=== PATIENT | male | born 1985 | race Caucasian/White ===

== ENCOUNTER 2016-05-06 21:22 | Emergency (ER) | payer OTHER, MEDICAID ==
[~2016-05-06] VITALS: Ht 172.7 cm; Wt 95.0 kg
[2016-05-06 22:17] VITALS: Ht 172.7 cm; Wt 95.0 kg
[2016-05-07] MEDS ORDERED: LEVETIRACETAM IV 1,000 MG in SOD CHLORIDE 0.9% 100 ML IVPB STA (00:03)
--- NOTE | 2016-05-07 00:16 | RADRPT ---
PROCEDURE: XR Chest. CLINICAL INDICATION: Seizure. TECHNIQUE: Portable AP upright view of the chest was obtained. COMPARISON: None available. FINDINGS: The cardiomediastinal silhouette is within normal limits. The lungs are clear. There is no evidenc e for pleural effusion, pneumothorax or pulmonary vascular congestion. The osseous structures are i ntact with no evidence for acute abnormality. RPTAT:HJJR IMPRESSION: No evidence for acute intrathoracic pathology. Physician Yumiko Date Time Electronically viewed and signed by Physician Yumiko on 05/07/2016 00:16 JR/
[2016-05-07 00:33] LABS: BASOPHILS % 0.5 % (0.0-2.0); EOSINOPHILS # 0.2 10^3/ul (0.0-0.5); EOSINOPHILS % 2.5 % (0.0-7.0); HEMATOCRIT 35.8 % (42.0-52.0); HEMOGLOBIN 12.2 g/dl (14.0-18.0); LYMPHOCYTES # 2.3 10^3/ul (0.8-2.9); LYMPHOCYTES % 34.5 % (15.0-51.0); MEAN CORPUSCULAR HEMOGLOBIN 30.7 pg (29.0-33.0); MEAN CORPUSCULAR HGB CONC 34.1 g/dl (32.0-37.0); MEAN PLATELET VOLUME 8.4 fl (7.4-10.4); MONOCYTE # 0.7 10^3/ul (0.3-0.9); MONOCYTES % 10.5 % (0.0-11.0); NEUTROPHIL # 3.5 10^3/ul (1.6-7.5); PLATELET COUNT 303 10^3/UL (140-440); RED BLOOD COUNT 3.98 10^6/ul (4.70-6.10); RED CELL DISTRIBUTION WIDTH 14.6 % (11.5-14.5); UNCORRECTED WBC 6.8 10^3/ul (4.8-10.8); WHITE BLOOD COUNT 6.8 10^3/ul (4.8-10.8)
[2016-05-07 00:35] LABS: CONDITION 1; LH ANALYZER COMMENTS 1
--- NOTE | 2016-05-07 00:58 | RADRPT ---
PROCEDURE: CT brain without contrast CLINICAL INDICATION: Seizure TECHNIQUE: A CT of the brain was performed utilizing axial sections from the skull base through th e vertex without contrast. Sagittal and coronal images were also reformatted. The exam CTDIvol = 45. 01 mGy and DLP = 810.25 mGy-cm. COMPARISON: None available FINDINGS: Right temporal craniotomy changes are demonstrated and there is encephalomalacia of the underlying r ight posterior temporal lobe with associated mild ex vacuo of the posterior temporal horn right late ral ventricle. There is no evidence of intracranial hemorrhage. No mass lesion, mass effect or ext ra-axial collections are present. The ventricular system is within normal limits without hydrocepha lous. The fourth ventricle is midline there is no density alteration within the marisela or cerebellum. No findings of acute ischemic infarct are demonstrated. Incidental chronic-appearing bilateral maxillary sinus disease is present. The remaining paranasal sinuses and mastoid air cells are grossly clear RPTAT:HJJR IMPRESSION: 1. Changes of prior right temporal craniotomy with associated encephalomalacia of the adjacent unde rlying right posterior temporal lobe. 2. No evidence of acute intracranial abnormality or mass effect. Physician Yumiko Date Time Electronically viewed and signed by Physician Yumiko on 05/07/2016 00:58 /
[2016-05-07 00:59] LABS: POTASSIUM 4.1 mmol/L (3.5-5.1)
[2016-05-07 01:01] LABS: CREATININE 0.86 mg/dl (0.61-1.24)
[2016-05-07 01:02] LABS: CALCIUM 8.6 mg/dl (8.4-10.2)
[2016-05-07] MEDS ORDERED: LEVE750T70 PO (03:04)
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
[2016-05-07 03:37] VITALS: BP 134/92; PULSE 62; RESP 16; TEMP 97.9
== END 2016-05-07 03:52 | disposition home or self-care (01) ==
LOC: E/R 21:22
DX: R56.9 Unspecified convulsions (principal); J06.9 Acute upper respiratory infection, unspecified; F17.210 Nicotine dependence, cigarettes, uncomplicated; R40.2142 Coma scale, eyes open, spontaneous, at arrival to emergency department; R40.2252 Coma scale, best verbal response, oriented, at arrival to emergency department; R40.2362 Coma scale, best motor response, obeys commands, at arrival to emergency department
CPT/HCPCS: 36415; 70450; 71010; 80048; 84484; 85025; 96374; 99285; J1953

== ENCOUNTER 2016-06-04 02:04 | Emergency (ER) | payer SELFPAY ==
[~2016-06-04] VITALS: Ht 172.7 cm; Wt 96.5 kg
[~2016-06-04 02:04] MED LIST: LEVE750T70 PO
[2016-06-04 02:58] VITALS: Ht 172.7 cm; Wt 96.5 kg
== END 2016-06-04 05:09 | disposition left against medical advice (07) ==
LOC: E/R 02:04
DX: Z53.21 Procedure and treatment not carried out due to patient leaving prior to being seen by health care provider (principal)

== ENCOUNTER 2016-09-27 20:41 | Emergency (ER) | payer SELFPAY ==
[~2016-09-27] VITALS: Ht 175.3 cm; Wt 101.0 kg
[2016-09-27 21:23] VITALS: Ht 175.3 cm; Wt 101.0 kg
[2016-09-27] MEDS ORDERED: DIPHTH/TET/ACEL PERTUSS (ADULT) 0.5 ML VIAL IM* ONE (22:30)
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
[2016-09-27] MEDS ORDERED: DIPHENHYDRAMINE 50 MG INJ IM ONE (23:30)
--- NOTE | 2016-09-27 23:41 | RADRPT ---
PROCEDURE: X-ray right hand. CLINICAL INDICATION: Right hand injury. TECHNIQUE: 3 views right hand COMPARISON: None FINDINGS: No acute fracture or dislocation. Soft tissues unremarkable. IMPRESSION: No acute fracture. RPTAT: [facility] Physician Chucky Date Time Electronically viewed and signed by Marihcuy Roman Physician on 09/27/2016 23:41 RS/
--- NOTE | 2016-09-27 23:41 | RADRPT ---
PROCEDURE: X-ray left foot CLINICAL INDICATION: Left foot pain TECHNIQUE: 3 views left foot COMPARISON: None FINDINGS: No acute fracture or dislocation. Soft tissues unremarkable. IMPRESSION: No acute fracture. RPTAT: [facility] Physician Chucky Date Time Electronically viewed and signed by Marichuy Roman Physician on 09/27/2016 23:41 RS/
[2016-09-28] MEDS ORDERED: IBUP-1542 PO (00:06)
[2016-09-28] MEDS ORDERED: CEPH-443 PO (00:06)
[2016-09-28] MEDS ORDERED: HYDR-906 PO (00:06)
[2016-09-28 00:26] VITALS: BP 128/77; PULSE 71; RESP 20; TEMP 98.2
== END 2016-09-28 00:27 | disposition home or self-care (01) ==
LOC: FTE 20:41
DX: S90.32XA Contusion of left foot, initial encounter (principal); S60.221A Contusion of right hand, initial encounter; S91.202A Unspecified open wound of left great toe with damage to nail, initial encounter; F17.210 Nicotine dependence, cigarettes, uncomplicated; W19.XXXA Unspecified fall, initial encounter; Y92.9 Unspecified place or not applicable; Z23 Encounter for immunization
CPT/HCPCS: 73130; 73630; 90715; J1200; 90471; 96372

== ENCOUNTER 2016-10-02 01:43 | Emergency (ER) | payer SELFPAY ==
[~2016-10-02] VITALS: Ht 172.7 cm; Wt 104.5 kg
[~2016-10-02 01:43] MED LIST changes: +CEPH-443 PO; +HYDR-906 PO; +IBUP-1542 PO
[2016-10-02 01:50] VITALS: Ht 172.7 cm; Wt 104.5 kg
[2016-10-02] MEDS ORDERED: LORAZEPAM 2 MG INJ ONE (02:02)
[2016-10-02] MEDS ORDERED: LEVETIRACETAM IV 750 MG in SOD CHLORIDE 0.9% 100 ML IVPB STA (02:06)
[2016-10-02] MEDS ORDERED: LORAZEPAM 2 MG INJ IV STA (02:06)
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
--- NOTE | 2016-10-02 03:00 | RADRPT ---
PROCEDURE: CT abdomen and pelvis without intravenous contrast. CLINICAL INDICATION: Pain. TECHNIQUE: CT of the abdomen/pelvis was performed utilizing axial images with reconstructions in s agittal and coronal planes. The administered radiation dose is CTDI 22 mGy, DLP 1437 mGy-cm. COMPARISON: No pertinent prior examinations were submitted for comparison. FINDINGS: Visualized Chest: There is a calcified granuloma the left lower lobe. Abdomen: The spleen, pancreas, gallbladder,and adrenal glands are unremarkable. The liver is diffusely dec reased in attenuation, compatible with hepatic steatosis. The kidneys are without hydronephrosis. There is a punctate nonobstructive calculus within the inte rpolar left kidney. There is no evidence of bowel obstruction. The appendix is normal. No intra-abdominal free air is seen. There is no evidence of intra-abdominal adenopathy or free fluid. Pelvis: There is no evidence of pelvic adenopathy or free fluid. The prostate and bladder are unremarkable. Osseous structures: Unremarkable. IMPRESSION: No acute findings. Punctate nonobstructive left intrarenal calculus. Hepatic steatosis. RPTAT: HIKT .Praful Galan MD, MD Date Time Electronically viewed and signed by .Praful Galan MD, on 10/02/2016 02:59 .T/
[2016-10-02 03:27] LABS: ADD SCAN DIFF NO
[2016-10-02 03:42] LABS: BASOPHILS % 0.5 % (0.0-2.0); EOSINOPHILS # 0.3 10^3/ul (0.0-0.5); EOSINOPHILS % 3.7 % (0.0-7.0); HEMATOCRIT 35.8 % (42.0-52.0); HEMOGLOBIN 12.1 g/dl (14.0-18.0); LYMPHOCYTES # 3.3 10^3/ul (0.8-2.9); LYMPHOCYTES % 41.4 % (15.0-51.0); MEAN CORPUSCULAR HEMOGLOBIN 30.6 pg (29.0-33.0); MEAN CORPUSCULAR HGB CONC 33.8 g/dl (32.0-37.0); MEAN CORPUSCULAR VOLUME 90.4 fl (82.0-101.0); MEAN PLATELET VOLUME 9.9 fl (7.4-10.4); MONOCYTES % 12.8 % (0.0-11.0); NEUTROPHIL # 3.2 10^3/ul (1.6-7.5); PLATELET COUNT 377 10^3/UL (140-415); RED BLOOD COUNT 3.96 10^6/ul (4.70-6.10); RED CELL DISTRIBUTION WIDTH 14.5 % (11.5-14.5); WHITE BLOOD COUNT 7.9 10^3/ul (4.8-10.8)
[2016-10-02] MEDS ORDERED: MULT-861 PO (03:43)
[2016-10-02 03:57] LABS: ALBUMIN 4.6 g/dl (3.3-4.9); ALBUMIN/GLOBULIN RATIO 1.53; BILIRUBIN,INDIRECT 0.1 mg/dl (0-1.1); BILIRUBIN,TOTAL 0.1 mg/dl (0.2-1.3); CALCIUM 8.8 mg/dl (8.4-10.2); CREATININE 0.75 mg/dl (0.61-1.24); POTASSIUM 4.1 mmol/L (3.5-5.1); TOTAL PROTEIN 7.6 g/dl (6.1-8.1)
[2016-10-02 04:03] LABS: ADD UMIC NO; UR BILIRUBIN (Dip) NEGATIVE (NEGATIVE); UR BLOOD (Dip) NEGATIVE (NEGATIVE); UR CLARITY CLEAR (CLEAR); UR COLOR LT. YELLOW (YELLOW); UR GLUCOSE (Dip) NEGATIVE (NEGATIVE); UR KETONES (Dip) NEGATIVE (NEGATIVE); UR LEUKOCYTE ESTERASE (Dip) NEGATIVE (NEGATIVE); UR NITRITE (Dip) NEGATIVE (NEGATIVE); UR TOTAL PROTEIN (Dip) NEGATIVE (NEGATIVE); UR UROBILINOGEN (Dip) 0.2 E.U./dL (0.1-1.0)
[2016-10-02 04:27] LABS: BARBITURATES Negative (NEGATIVE); BENZODIAZEPINES Negative (NEGATIVE); CANNABINOIDS Negative (NEGATIVE); COCAINE Negative (NEGATIVE); OPIATES Negative (NEGATIVE)
[2016-10-02 06:06] VITALS: BP 116/65; PULSE 78; RESP 14
== END 2016-10-02 06:07 | disposition home or self-care (01) ==
LOC: E/R 01:43
DX: R10.84 Generalized abdominal pain (principal); R40.2252 Coma scale, best verbal response, oriented, at arrival to emergency department; G40.909 Epilepsy, unspecified, not intractable, without status epilepticus; F10.10 Alcohol abuse, uncomplicated; D64.9 Anemia, unspecified; F17.210 Nicotine dependence, cigarettes, uncomplicated; R40.2142 Coma scale, eyes open, spontaneous, at arrival to emergency department; R40.2362 Coma scale, best motor response, obeys commands, at arrival to emergency department
CPT/HCPCS: 74176; 80053; 80306; 80307; 81003; 82962; 83690; 85025; J1953; J2060; 36415; 96374; 96375

== ENCOUNTER 2016-10-21 20:03 | Emergency (ER) | payer MEDICAID ==
[~2016-10-21] VITALS: Ht 177.8 cm; Wt 100.5 kg
[~2016-10-21 20:03] MED LIST changes: -HYDR-906 PO; +MULT-861 PO
[2016-10-21 20:08] VITALS: Ht 177.8 cm; Wt 100.5 kg
[2016-10-21] MEDS ORDERED: ACETAMINOPHEN 325 MG TAB PO ONE (21:00)
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
[2016-10-21] MEDS ORDERED: ACET325T33 PO (21:59)
[2016-10-21 22:20] VITALS: BP 135/79; PULSE 60; RESP 16; TEMP 98.9
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
== END 2016-10-21 22:21 | disposition home or self-care (01) ==
LOC: FTE 20:03
DX: S09.90XA Unspecified injury of head, initial encounter (principal); F17.210 Nicotine dependence, cigarettes, uncomplicated; R51 Headache; Y08.89XA Assault by other specified means, initial encounter
CPT/HCPCS: 70450; Z7502; Z7610

== ENCOUNTER 2017-05-12 21:55 | Emergency (ER) | END 2017-05-13 | disposition left against medical advice (07) ==

== ENCOUNTER 2017-10-22 23:54 | Emergency (ER) | END 2017-10-23 05:03 | disposition home or self-care (01) ==

== ENCOUNTER 2017-12-29 19:54 | Emergency (ER) | END 2017-12-30 01:05 | disposition home or self-care (01) ==

== ENCOUNTER 2018-03-18 17:44 | Emergency (ER) | payer MEDICAID ==
[~2018-03-18] VITALS: Ht 162.6 cm; Wt 55.0 kg
[~2018-03-18 17:44] MED LIST changes: +BUSP10TA2 PO; -CEPH-443 PO; -IBUP-1542 PO; -MULT-861 PO; +SERT25TA83 PO
[2018-03-18 17:45] VITALS: Ht 162.6 cm; Wt 55.0 kg
[2018-03-18] MEDS ORDERED: ONDANSETRON 4 MG INJ IV STA (18:16)
[2018-03-18] MEDS ORDERED: SOD CHLORIDE 0.9% 1,000 ML IV STA (18:16)
[2018-03-18] MEDS ORDERED: morphine 2 MG INJ IV STA (18:16)
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
[2018-03-18] MEDS ORDERED: LIDOCAINE/MYLANTA 40 ML BTL PO STA (19:32)
[2018-03-18] MEDS ORDERED: FAMOTIDINE 20 MG INJ IV STA (19:32)
[2018-03-18] MEDS ORDERED: SOD CHLORIDE 0.9% 100 ML ONE (19:52)
[2018-03-18] MEDS ORDERED: IOHEXOL 300MG/ML 150 ML BTL ONE (19:52)
[2018-03-18] MEDS ORDERED: HYDROmorphONE 1 MG/ML SYG IV STA (20:49)
[2018-03-18] MEDS ORDERED: HYDR-4011 PO (22:32)
[2018-03-18] MEDS ORDERED: IBUP-1542 PO (22:32)
[2018-03-18] MEDS ORDERED: FAMO-96 PO (22:43)
[2018-03-18 23:09] VITALS: BP 115/63; PULSE 60; RESP 20
== END 2018-03-18 23:11 | disposition home or self-care (01) ==
LOC: FTE 17:44
DX: R07.9 Chest pain, unspecified (principal); I10 Essential (primary) hypertension
CPT/HCPCS: 71045; 74177; 80053; 83690; 83880; 84484; 85025; J1170; J2270; J2405; J7030; Q9967; Z7610; 36415; 93005; 96361; 96374; 96375

== ENCOUNTER 2018-06-25 19:39 | Emergency (ER) | payer MEDICAID ==
[~2018-06-25] VITALS: Ht 170.2 cm; Wt 84.6 kg
[~2018-06-25 19:39] MED LIST changes: +FAMO-96 PO; +HYDR-4011 PO; +IBUP-1542 PO
[2018-06-25 19:40] VITALS: Ht 170.2 cm; Wt 84.6 kg
[2018-06-25] MEDS ORDERED: ONDANSETRON 4 MG INJ IV STA (19:54)
[2018-06-25] MEDS ORDERED: SOD CHLORIDE 0.9% 1,000 ML IV STA (19:54)
[2018-06-25] MEDS ORDERED: morphine 4 MG/ML VIAL IV STA (19:54)
[2018-06-25] MEDS ORDERED: ONDA4TAB14 PO (21:32)
--- NOTE | 2018-06-25 21:39 | ERD ---
ER Documentation Chief Complaint Chief Complaint RUQ PAIN WITH NAUSEA AND DIARRHEA [id number]; HX OF GALLBLADDER HPI 33-year-old male patient with a past medical history of seizures and gallstones presents to the ED stating he has right upper quadrant abdominal pain that started intermittently for 1 week associated with several episodes of nonmucoid nonbloody diarrhea. Patient reports that he feels nauseous but denies any vomiting. Denies any constipation, chest pain, shortness of breath, wheezing, fever, chills. Patient reports that eating worsens the pain. ROS All systems reviewed and are negative except as per history of present illness. Medications Home Meds Active Scripts Ondansetron (Ondansetron Odt) 4 Mg Tab.rapdis, 4 MG PO Q6H PRN for NAUSEA AND/OR VOMITING, #10 TAB Prov:CHASE BELTRAN PA-C 06/25/18 Famotidine* (Pepcid*) 20 Mg Tablet, 20 MG PO BID for 4 Days, TAB Prov:OLGA MILLS PA-C 03/18/18 Ibuprofen* (Motrin*) 600 Mg Tab, 600 MG PO Q6, #30 TAB Prov:OLGA MILLS PA-C 03/18/18 Hydrocodone/Acetaminophen ([place] 5-325 Tablet) 1 Each Tablet, 1 TAB PO Q6H PRN for PAIN, #7 TAB Prov:OLGA MILLS PA-C 03/18/18 Reported Medications Sertraline Hcl* (Sertraline Hcl*) 25 Mg Tablet, 25 MG PO DAILY, #30 TAB 12/29/17 Buspirone Hcl* (Buspirone Hcl*) 10 Mg Tab, 10 MG PO BID, TAB 12/29/17 Levetiracetam* (Keppra*) 750 Mg Tablet, 750 MG PO BID, TAB 12/29/17 Allergies Allergies: Coded Allergies: No Known Allergy (Unverified , 06/25/18) PMhx/Soc History of Surgery: Yes (Brain) Anesthesia Reaction: No Hx Neurological Disorder: Yes (Seizure) Hx Respiratory Disorders: No Hx Cardiac Disorders: Yes (HTN) Hx Psychiatric Problems: No Hx Miscellaneous Medical Probl: No Hx Alcohol Use: Yes Hx Substance Use: No Hx Tobacco Use: No Smoking Status: Current every day smoker FmHx Family History: No diabetes, No coronary disease Physical Exam Vitals Vital Signs Date Temp Pulse Resp B/P (MAP) Pulse Ox O2 O2 Flow FiO2 Time Delivery Rate 06/25/18 98.0 95 16 151/89 98 19:40 (109) Physical Exam Const: Ect-okv-uwjheopaf, well-nourished. In no acute distress. Head: Atraumatic, normocephalic Eyes: Normal Conjunctiva without injection. No purulent discharge. ENT: Normal external ear, nose. Moist oropharynx without tonsillar exudates. Non-erythematous pharynx. Uvula midline. No drooling. No trismus. Neck: No cervical midline tenderness. Full range of motion. No meningismus. No cervical lymphadenopathy. No JVD. Resp: Clear to auscultation bilaterally. No wheezing, rhonchi, rales, or crackles. No accessory muscle use. No retractions. Cardio: Regular rate and rhythm. No murmurs, rubs or gallops. Abd: Soft, right upper quadrant tenderness, non distended. Normal bowel sounds. No palpable masses. No rebound tenderness. No guarding. Negative McBurney's point. Negative psoas sign. Negative obturator sign. Skin: No petechiae or rashes Back: No midline tenderness. No CVA tenderness. Ext: No cyanosis, or edema. Neur: Awake and alert. Normal gait. Normal coordination. Psych: Normal Mood and Affect Results 24 hrs Laboratory Tests Test 06/25/18 20:15 White Blood Count 7.2 10^3/ul Red Blood Count 4.53 10^6/ul Hemoglobin 13.6 g/dl Hematocrit 40.1 % Mean Corpuscular Volume 88.5 fl Mean Corpuscular Hemoglobin 30.0 pg Mean Corpuscular Hemoglobin Concent 33.9 g/dl Red Cell Distribution Width 13.2 % Platelet Count 378 10^3/UL Mean Platelet Volume 9.3 fl Immature Granulocytes % 0.100 % Neutrophils % 55.9 % Lymphocytes % 35.6 % Monocytes % 6.8 % Eosinophils % 1.0 % Basophils % 0.6 % Nucleated Red Blood Cells % 0.0 /100WBC Immature Granulocytes # 0.010 10^3/ul Neutrophils # 4.0 10^3/ul Lymphocytes # 2.6 10^3/ul Monocytes # 0.5 10^3/ul Eosinophils # 0.1 10^3/ul Basophils # 0.0 10^3/ul Nucleated Red Blood Cells # 0.0 10^3/ul Urine Color YELLOW Urine Clarity SLIGHTLY CLOUDY Urine pH 8.0 Urine Specific [place] 1.023 Urine Ketones NEGATIVE mg/dL Urine Nitrite NEGATIVE mg/dL Urine Bilirubin NEGATIVE mg/dL Urine Urobilinogen NEGATIVE mg/dL Urine Leukocyte Esterase NEGATIVE Marcel/ul Urine Microscopic RBC 0 /HPF Urine Microscopic WBC 1 /HPF Urine Squamous Epithelial Cells FEW /HPF Urine Mucus FEW /HPF Urine Hemoglobin NEGATIVE mg/dL Urine Glucose NEGATIVE mg/dL Urine Total Protein NEGATIVE mg/dl Sodium Level 141 mmol/L Potassium Level 4.3 mmol/L Chloride Level 102 mmol/L Carbon Dioxide Level 30 mmol/L Anion Gap 9 Blood Urea Nitrogen 18 mg/dl Creatinine 0.94 mg/dl Est Glomerular Filtrat Rate mL/min > 60 mL/min Glucose Level 97 mg/dl Calcium Level 8.9 mg/dl Total Bilirubin 0.4 mg/dl Direct Bilirubin 0.00 mg/dl Indirect Bilirubin 0.4 mg/dl Aspartate Amino Transf (AST/SGOT) 30 IU/L Alanine Aminotransferase (ALT/SGPT) 30 IU/L Alkaline Phosphatase 93 IU/L Total Protein 8.0 g/dl Albumin 4.6 g/dl Globulin 3.40 g/dl Albumin/Globulin Ratio 1.35 Lipase 76 U/L Current Medications Medications Dose Sig/Amee Start Time Status Last (Trade) Ordered Route PRN Stop Time Admin Dose Reason Admin Sodium 1,000 ml @ Q1H STAT 06/25/18 DC 06/25/18 Chloride 1,000 mls/hr IV 19:54 06/25/18 20:14 20:53 Morphine 4 mg ONCE STAT 06/25/18 DC 06/25/18 Sulfate IV 19:54 06/25/18 20:14 (morphine) 19:56 Ondansetron 4 mg ONCE STAT 06/25/18 DC 06/25/18 HCl (Zofran IV 19:54 06/25/18 20:14 Inj) 19:56 Procedures/MDM 33-year-old male patient with no significant past medical history presents the ED complaining of right upper quadrant abdominal pain that started 1 week ago. Patient is afebrile and nontoxic-appearing. Patient was further worked up with CBC, CMP, lipase, UA, gallbladder ultrasound. Patient's pain and symptoms have improved after treatment with 4 mg IV morphine, 4 mg IV Zofran, 1 L of normal saline. IMPRESSION: Unremarkable right upper quadrant abdominal ultrasound. CBC: No leukocytosis. No e/o of systemic infection. No e/o anemia. CMP: No e/o severe acidosis, alkalosis, renal failure, diabetic ketoacidosis, liver disease Lipase within normal limits. Urine: No leukocyte esterase, no nitrites, no hematuria. Right upper quadrant abdominal pain unknown at this time. Patient offered CT of the abdomen and pelvis however patient stated that he would return in 8-12 hours for reexamination. Patient's pain has slightly improved. Low suspicion for testicular torsion, gastritis, GERD, peptic ulcer disease, cholecystitis, choledocholithiasis, cholangitis, pancreatitis, appendicitis, bowel obstruction, ileus, volvulus, nephrolithiasis, pyelonephritis, hepatitis, perforated viscus, diverticulitis, abdominal hernia, acute abdomen, mesenteric ischemia or other emergent conditions. Low suspicion for acute myocardial infarction, pneumothorax, pericarditis, myocarditis, endocarditis, pneumonia, cardiac tamponade, pulmonary embolism, pleural effusion, AAA, aortic dissection, Vicente rhaave's syndrome, cardiac dysrhythmias,meningitis, intracranial bleed, seizure, stroke, TIA or other emergent conditions. Diagnosis: Abdominal pain, Diarrhea, Nausea Discharge medications: Zofran Follow up with primary care physician in 1-2 days. Instructed patient to return to the ED sooner for any worsening symptoms. Patient's questions were answered. Patient is hemodynamically stable. Patient understood and agreed with discharge plan. Patient discharged stable. Disclaimer: Inadvertent spelling and grammatical errors are likely due to EHR/dictation software use and do not reflect on the overall quality of patient care. Also, please note that the electronic time recorded on this note does not necessarily reflect the actual time of the patient encounter. Departure Diagnosis: Primary Impression: Abdominal pain Abdominal location: unspecified location Qualified Codes: R10.9 - Unspecified abdominal pain Additional Impressions: Diarrhea Diarrhea type: unspecified type Qualified Codes: R19.7 - Diarrhea, unspecified Nausea Condition: Stable Patient Instructions: Abdominal Pain, Self-Care for Vomiting and Diarrhea Referrals: COMM[facility]ITY [facility] YOU HAVE RECEIVED A MEDICAL SCREENING EXAM AND THE RESULTS INDICATE THAT YOU DO NOT HAVE A CONDITION THAT REQUIRES URGENT TREATMENT IN THE EMERGENCY DEPARTMENT. FURTHER EVALUATION AND TREATMENT OF YOUR CONDITION CAN WAIT UNTIL YOU ARE SEEN IN YOUR DOCTORS OFFICE WITHIN THE NEXT 1-2 DAYS. IT IS YOUR RESPONSIBILITY TO MAKE AN APPOINTMENT FOR FOLOW-UP CARE. IF YOU HAVE A PRIMARY DOCTOR --you should call your primary doctor and schedule an appointment IF YOU DO NOT HAVE A PRIMARY DOCTOR YOU CAN CALL OUR PHYSICIAN REFERRAL HOTLINE AT IF YOU CAN NOT AFFORD TO SEE A PHYSICIAN YOU CAN CHOSE FROM THE FOLLOWING [facility] [address] [facility] [address] [facility] [address] [facility] [address] [facility] [address] [facility] [address] [facility]. [facility] YOU HAVE RECEIVED A MEDICAL SCREENING EXAM AND THE RESULTS INDICATE THAT YOU DO NOT HAVE A CONDITION THAT REQUIRES URGENT TREATMENT IN THE EMERGENCY DEPARTMENT. FURTHER EVALUATION AND TREATMENT OF YOUR CONDITION CAN WAIT UNTIL YOU ARE SEEN IN YOUR DOCTORS OFFICE WITHIN THE NEXT 1-2 DAYS. IT IS YOUR RESPONSIBILITY TO MAKE AN APPOINTMENT FOR FOLOW-UP CARE. IF YOU HAVE A PRIMARY DOCTOR --you should call your primary doctor and schedule and appointment IF YOU DO NOT HAVE A PRIMARY DOCTOR YOU CAN CALL OUR PHYSICIAN REFERRAL HOTLINE AT . IF YOU CAN NOT AFFORD TO SEE A PHYSICIAN YOU CAN CHOSE FROM THE FOLLOWING [facility] INSTITUTIONS: [facility] [address] [place] [address] [facility] [address] [place] [address] [facility] + [facility] [address] [place] [address] [facility]ENT [facility]/SPECIALTIES Additional Instructions: Return to the ED in 8-12 days for a reexamination of the abdomen. See the doctor sooner or return here if your condition worsens before your appointment time. CHASE BELTRAN PA-C Jun 25, 2018 21:39
[2018-06-25 21:42] VITALS: BP 136/87; PULSE 78; RESP 18
== END 2018-06-25 21:43 | disposition home or self-care (01) ==
LOC: FTE 19:39
DX: R10.11 Right upper quadrant pain (principal); I10 Essential (primary) hypertension; F17.210 Nicotine dependence, cigarettes, uncomplicated; R19.7 Diarrhea, unspecified; R11.0 Nausea
CPT/HCPCS: 76705; 80053; 81001; 83690; 85025; J2270; J2405; J7030; 36415; 81003; 96374; 96375

== ENCOUNTER 2018-07-26 11:41 | Emergency (ER) | payer SELFPAY ==
[~2018-07-26] VITALS: Wt 89.0 kg
[~2018-07-26 11:41] MED LIST changes: +ONDA4TAB14 PO
[2018-07-26 12:03] VITALS: BP 129/84; PULSE 84; RESP 18
== END 2018-07-26 13:17 | disposition left against medical advice (07) ==
LOC: FTE 11:41
DX: Z53.21 Procedure and treatment not carried out due to patient leaving prior to being seen by health care provider (principal)